=== PATIENT | male | born 1990 | race African-American/Black ===

== ENCOUNTER → 2018-08-29 06:40 | Emergency (ER) | payer MEDICAID | END | disposition left against medical advice (07) | LOC: ED 06:40 | DX: R07.0 Pain in throat (principal); R50.9 Fever, unspecified; Z53.21 Procedure and treatment not carried out due to patient leaving prior to being seen by health care provider ==

== ENCOUNTER 2018-08-30 00:19 | Emergency (ER) | payer MEDICAID ==
--- NOTE | 2018-08-30 00:32 | ED ---
Throat Pain/Nasal Congestion - HPI Summary HPI Summary: Pt is a 27 year old male BIBA for a sore throat. PMH/Surg Hx/FS Hx/Imm Hx Infectious Disease History: Denies: Traveled Outside the [place] in Last 30 Days Review of Systems Negative: Fever Positive: Sore Throat All Other Systems Reviewed And Are Negative: Yes Physical Exam - Summary Physical Exam Summary: Appearance: Well-appearing, Well-nourished, lying in bed comfortable Skin: Warm, dry, no obvious rash Eyes: sclera anicteric, no conjunctival pallor ENT: mucous membranes moist Neck: deferred Respiratory: No signs of respiratory distress Cardiovascular: Appears well perfused, pulses are nml Abdomen: deferred Musculoskeletal: Moving all 4 extremities without obvious discomfort Neurological: Awake and alert, mentation is normal, speech is fluent and appropriate Psychiatric: affect is normal, does not appear anxious or depressed Triage Information Reviewed: Yes EENT Course/Dx - Course Course Of Treatment: The patient came in by ambulance reportedly with a chief complaint of sore throat. The triage nurse obtained a throat swab in anticipation of that test being required, at which point the patient became somewhat agitated, verbally abusive, yelling and screaming at the nurse saying "fuck you" and other epithets. I entered the room during this tirade, and he continued and started directing it towards me, at which point I explained that he was not entitled to treat staff in this abusive fashion and he would be discharged. He did receive a medical screening exam by me in a very limited fashion. He was escorted off the premises by security staff. - Diagnoses Provider Diagnoses: Sore throat Discharge - Sign-Out/Discharge Documenting (check all that apply): Patient Departure - Discharge Plan Condition: Stable Disposition: HOME Referrals: No Primary Care Phys,NOPCP [Primary Care Provider] - - Billing Disposition and Condition Condition: STABLE Disposition: Home - Attestation Statements Document Initiated by Scribe: Yes Documenting Scribe: Glenn Harper Provider For Whom Miguelangel is Documenting (Include Credential): Jass Melissa MD Scribe Attestation: Glenn Lincoln scribed for Jass Melissa MD on 08/30/18 at 0408. Scribe Documentation Reviewed: Yes Provider Attestation: The documentation as recorded by the Glenn weinstein accurately reflects the service I personally performed and the decisions made by me, Jass Melissa MD
[2018-08-30 03:25] VITALS: BP 0/0
== END 2018-08-30 00:45 | disposition home or self-care (01) ==
LOC: ED 00:19
DX: J02.9 Acute pharyngitis, unspecified (principal)
CPT/HCPCS: 99282